=== PATIENT | male | born 1950 | race Caucasian/White ===

== ENCOUNTER 2024-04-03 00:57 | Inpatient (IN) | payer MEDICARE ==
[~2024-04-03] VITALS: Ht 182.9 cm; Wt 57.2 kg
[2024-04-03 01:53] LABS: BASOPHILS % (AUTO) 0.3 % (0.0-2.0); EOSINOPHILS # (AUTO) 0.1 K/uL (0.0-0.7); EOSINOPHILS % (AUTO) 1.6 % (0.0-6.0); HEMATOCRIT 38 % (39-51); HEMOGLOBIN 12.8 g/dL (13.5-17.5); LYMPHOCYTES # (AUTO) 1.5 K/uL (0.8-4.8); LYMPHOCYTES % (AUTO) 18.6 % (20.0-44.0); MEAN CORPUSCULAR HEMOGLOBIN 29 PG (26.0-33.0); MEAN CORPUSCULAR HGB CONC 34 g/dl (31.0-36.0); MEAN CORPUSCULAR VOLUME 86 fL (80-96); MONOCYTES # (AUTO) 0.7 K/uL (0.1-1.30); MONOCYTES % (AUTO) 9.1 % (2.0-12.0); NEUTROPHILS # (AUTO) 5.7 K/uL (1.8-8.9); NEUTROPHILS % (AUTO) 70.4 % (43.0-81.0); PLATELET COUNT (AUTO) 239 K/uL (150-450); RED BLOOD CELL COUNT(AUTO) 4.39 MIL/uL (4.5-6.0); RED CELL DISTRIBUTION WIDTH 14.9 % (11.5-15.0); WHITE BLOOD COUNT (AUTO) 8.1 K/uL (4.3-11.0)
[2024-04-03 02:05] LABS: APPEARANCE,URINE CLEAR (CLEAR); BILIRUBIN,URINE NEGATIVE (NEGATIVE); BLOOD, URINE NEGATIVE Ery/uL (NEGATIVE); COLOR,URINE YELLOW (YELLOW); KETONES,URINE NEGATIVE (NEGATIVE); LEUKOCYTE ESTERASE ,URINE NEGATIVE (NEGATIVE); NITRITE, URINE NEGATIVE (NEGATIVE); PROTEIN,URINE NEGATIVE (NEGATIVE); UGLUCOSE NEGATIVE (NEGATIVE); UROBILINOGEN,URINE 0.2 EU/dL (0.2)
[2024-04-03 02:07] LABS: CALCIUM, SERUM 8.1 mg/dL (8.5-10.1); CARBON DIOXIDE 32 mmol/L (21-32); CHLORIDE 107 mmol/L (98-107); CREATININE 1.1 mg/dL (0.6-1.3); GLUCOSE 96 mg/dL (74-106); POTASSIUM 4.3 mmol/L (3.5-5.1); SODIUM SERUM 144 mmol/L (136-145); UREA NITROGEN, BLOOD 23 mg/dL (7-18)
[2024-04-03 02:13] LABS: ALANINE AMINOTRANSFERASE 19 U/L (12-78); ALBUMIN 3.1 g/dL (3.4-5.0); ALCOHOL, BLOOD < 3 mg/dL (0-10); ALKALINE PHOSPHATASE 73 U/L (46-116); ASPARTATE AMINOTRANSFERASE 12 U/L (15-37); BILIRUBIN,DIRECT 0.2 mg/dL (0.0-0.2); BILIRUBIN,TOTAL 0.5 mg/dL (0.2-1.0); TOTAL PROTEIN, SERUM 6.6 g/dL (6.4-8.2)
[2024-04-03 02:14] LABS: ACETAMINOPHEN 0 ug/ml (10-30); SALICYLATE 0.7 mg/dL (2.8-20.0)
[2024-04-03 02:17] LABS: AMPHETAMINE, URINE NEGATIVE (NEGATIVE); BARBITURATE, URINE NEGATIVE (NEGATIVE); BENZODIAZEPINE, URINE NEGATIVE (NEGATIVE); CANNABINOID, URINE NEGATIVE (NEGATIVE); COCCAINE, URINE NEGATIVE (NEGATIVE); OPIATE, URINE NEGATIVE (NEGATIVE); PHENCYCLIDINE SCREEN,URINE NEGATIVE (NEGATIVE)
[2024-04-03] MEDS ORDERED: ACETAMINOPHEN 325 MG TABLET ONE (04:37)
[2024-04-03] MEDS: ACETAMINOPHEN 325 MG TABLET PO ONE (04:45)
[2024-04-03] MEDS ORDERED: ESCI10TA PO (04:55)
[2024-04-03] MEDS ORDERED: ONDA4TAB11 PO (04:55)
[2024-04-03] MEDS ORDERED: ASPI-1420 PO (04:55)
[2024-04-03] MEDS ORDERED: HYDR-4075 PO (04:55)
[2024-04-03] MEDS ORDERED: DONE5TAB34 PO (04:55)
[2024-04-03] MEDS ORDERED: PANT40TA49 PO (04:55)
[2024-04-03] MEDS ORDERED: LOPE2TAB25 PO (04:55)
[2024-04-03] MEDS ORDERED: PROP20TA7 PO (04:55)
[2024-04-03] MEDS ORDERED: ATOR20TA PO (04:55)
[2024-04-03] MEDS ORDERED: MAG HYDROX/AL HYDROX/SIMETH 30 ML UDC PO PRN (06:00)
[2024-04-03] MEDS ORDERED: TEMAZEPAM 7.5 MG CAPSULE PO PRN (06:00)
[2024-04-03] MEDS ORDERED: MAGNESIUM HYDROXIDE 30 ML UDC PO PRN (06:00)
[2024-04-03 06:13] VITALS: BP 123/72; TEMP 98; O2SAT 98
[2024-04-03] MEDS: BLOOD SUGAR DIAGNOSTIC 1 EACH STRIP IN ONE (06:24)
[2024-04-03 08:00] VITALS: BP 142/85; TEMP 97.4; O2SAT 98
[2024-04-03] MEDS ORDERED: ONDA-97 PO (08:09)
[2024-04-03] MEDS: ESCITALOPRAM OXALATE (10 MG) 10 MG TABLET PO SCH (14:16)
[2024-04-03] MEDS: DIVALPROEX SODIUM 125 MG TABLET.DR PO SCH (14:17)
[2024-04-03 16:00] VITALS: BP 133/73; TEMP 98; O2SAT 98
[2024-04-03] MEDS ORDERED: hydrALAZINE HCL 10 MG TABLET PO PRN (16:30)
[2024-04-03] MEDS: ONDANSETRON 4 MG TAB.RAPDIS PO SCH (17:22)
[2024-04-03] MEDS: PROPRANOLOL HCL 10 MG TABLET PO SCH (17:23)
[2024-04-03] MEDS: LOPERAMIDE HCL (2 MG CAP) 2 MG CAPSULE PO SCH (18:21)
[2024-04-03 20:00] VITALS: BP 138/81; TEMP 97.6; O2SAT 98
[2024-04-03] MEDS: ACETAMINOPHEN 325 MG TABLET PO PRN (20:24)
[2024-04-03] MEDS: ATORVASTATIN 10 MG TABLET PO SCH (21:05)
[2024-04-03] MEDS: DONEPEZIL 5 MG TABLET PO SCH (21:06)
[2024-04-04] MEDS: PANTOPRAZOLE 40 MG TABLET.DR PO SCH (07:34)
[2024-04-04 08:00] VITALS: BP 117/66; TEMP 97.6; O2SAT 97
[2024-04-04] MEDS: ASPIRIN EC 81 MG TABLET.DR PO SCH (09:17)
[2024-04-04 09:28] LABS: BASOPHILS # (AUTO) 0.1 K/uL (0.0-0.2); EOSINOPHILS # (AUTO) 0.2 K/uL (0.0-0.7); EOSINOPHILS % (AUTO) 1.7 % (0.0-6.0); HEMATOCRIT 37 % (39-51); HEMOGLOBIN 12.5 g/dL (13.5-17.5); LYMPHOCYTES % (AUTO) 11.7 % (20.0-44.0); MEAN CORPUSCULAR HEMOGLOBIN 29 PG (26.0-33.0); MEAN CORPUSCULAR HGB CONC 34 g/dl (31.0-36.0); MEAN CORPUSCULAR VOLUME 86 fL (80-96); MONOCYTES # (AUTO) 0.4 K/uL (0.1-1.30); MONOCYTES % (AUTO) 4.7 % (2.0-12.0); NEUTROPHILS # (AUTO) 7.1 K/uL (1.8-8.9); NEUTROPHILS % (AUTO) 80.9 % (43.0-81.0); PLATELET COUNT (AUTO) 235 K/uL (150-450); RED BLOOD CELL COUNT(AUTO) 4.33 MIL/uL (4.5-6.0); RED CELL DISTRIBUTION WIDTH 14.7 % (11.5-15.0); WHITE BLOOD COUNT (AUTO) 8.8 K/uL (4.3-11.0)
[2024-04-04 13:35] LABS: CHOLESTEROL 151 mg/dL (<200); HDL CHOLESTEROL 46 mg/dL (40-60); LDL 73 mg/dL (0-99); TRIGLYCERIDES 185 mg/dL (30-150)
[2024-04-04 13:36] LABS: CALCIUM, SERUM 8.3 mg/dL (8.5-10.1); CARBON DIOXIDE 27 mmol/L (21-32); CHLORIDE 107 mmol/L (98-107); CREATININE 1.2 mg/dL (0.6-1.3); GLUCOSE 223 mg/dL (74-106); POTASSIUM 4.8 mmol/L (3.5-5.1); SODIUM SERUM 144 mmol/L (136-145); UREA NITROGEN, BLOOD 19 mg/dL (7-18)
[2024-04-04 16:00] VITALS: BP 119/60; TEMP 97.9; O2SAT 97
[2024-04-04] MEDS: DIVALPROEX SODIUM 125 MG TABLET.DR PO SCH (16:39)
[2024-04-04 20:00] VITALS: BP 123/63; TEMP 98.2; O2SAT 96
[2024-04-05 08:00] VITALS: BP 124/69; TEMP 97.9; O2SAT 96
[2024-04-05] MEDS: OLANZAPINE 10 MG VIAL IM ONE (11:11)
[2024-04-05] MEDS ORDERED: DEXTROSE 50%-WATER 50 ML DISP.SYRIN IV PRN (13:30)
[2024-04-05 16:00] VITALS: BP 112/68; TEMP 98.2; O2SAT 98
[2024-04-05] MEDS: BLOOD SUGAR DIAGNOSTIC 1 EACH STRIP IN SCH (17:22)
[2024-04-05] MEDS: GLUCERNA SHAKE 237 ML CAN PO SCH (17:22)
[2024-04-05] MEDS: INSULIN REGULAR, HUMAN 100 UNIT/ML 3 ML VIAL SQ PRN (17:24)
[2024-04-05 21:05] VITALS: BP 126/64; TEMP 97.9; O2SAT 98
[2024-04-06 08:00] VITALS: BP 129/71; TEMP 98; O2SAT 98
[2024-04-06] MEDS: DIVALPROEX SODIUM 250 MG TABLET.DR PO SCH (12:03)
[2024-04-06 16:00] VITALS: BP 151/82; TEMP 98.1; O2SAT 100
[2024-04-06] MEDS ORDERED: ONDANSETRON HCL 4 MG/5 ML SOLUTION PO PRN (16:30)
[2024-04-06] MEDS ORDERED: LOPERAMIDE HCL (2 MG CAP) 2 MG CAPSULE PO PRN (16:30)
[2024-04-06 20:00] VITALS: BP 145/82; TEMP 98; O2SAT 99
[2024-04-06] MEDS: LORAZEPAM 0.5 MG TABLET PO PRN (20:24)
[2024-04-07 08:00] VITALS: BP 141/61; TEMP 97.9; O2SAT 98
[2024-04-07 16:00] VITALS: BP 123/72; TEMP 98.7; O2SAT 98
[2024-04-07 20:36] VITALS: BP 124/74; TEMP 98.2; O2SAT 98
[2024-04-08 08:00] VITALS: BP 135/82; TEMP 97.7; O2SAT 95
[2024-04-08 16:00] VITALS: BP 148/75; TEMP 97.9; O2SAT 100
[2024-04-08] MEDS: METFORMIN 500 MG TABLET PO SCH (16:23)
[2024-04-08 20:00] VITALS: BP 131/70; TEMP 98.2; O2SAT 99
[2024-04-09 08:00] VITALS: BP 126/67; TEMP 98.6; O2SAT 98
[2024-04-09 16:00] VITALS: BP 141/73; TEMP 97.7; O2SAT 99
[2024-04-09 20:00] VITALS: BP 149/85; TEMP 97.9; O2SAT 97
[2024-04-10 08:00] VITALS: BP 137/78; TEMP 98; O2SAT 98
[2024-04-10 09:43] LABS: BASOPHILS % (AUTO) 0.5 % (0.0-2.0); EOSINOPHILS # (AUTO) 0.2 K/uL (0.0-0.7); EOSINOPHILS % (AUTO) 3.5 % (0.0-6.0); HEMATOCRIT 35 % (39-51); HEMOGLOBIN 12.1 g/dL (13.5-17.5); LYMPHOCYTES # (AUTO) 1.4 K/uL (0.8-4.8); LYMPHOCYTES % (AUTO) 23.1 % (20.0-44.0); MEAN CORPUSCULAR HEMOGLOBIN 29 PG (26.0-33.0); MEAN CORPUSCULAR HGB CONC 34 g/dl (31.0-36.0); MEAN CORPUSCULAR VOLUME 86 fL (80-96); MONOCYTES # (AUTO) 0.6 K/uL (0.1-1.30); MONOCYTES % (AUTO) 9.9 % (2.0-12.0); NEUTROPHILS # (AUTO) 3.9 K/uL (1.8-8.9); PLATELET COUNT (AUTO) 203 K/uL (150-450); RED CELL DISTRIBUTION WIDTH 14.3 % (11.5-15.0); WHITE BLOOD COUNT (AUTO) 6.1 K/uL (4.3-11.0)
[2024-04-10 12:17] LABS: ALBUMIN 2.7 g/dL (3.4-5.0); BILIRUBIN,TOTAL 0.6 mg/dL (0.2-1.0); CALCIUM, SERUM 8.7 mg/dL (8.5-10.1); POTASSIUM 4.8 mmol/L (3.5-5.1); TOTAL PROTEIN, SERUM 6.2 g/dL (6.4-8.2)
[2024-04-10 16:00] VITALS: BP 141/69; TEMP 98.6; O2SAT 99
[2024-04-10 20:00] VITALS: BP 140/72; TEMP 98.1; O2SAT 95
[2024-04-10 21:04] VITALS: BP 140/72; TEMP 98.1; O2SAT 98
[2024-04-11 08:00] VITALS: BP 150/72; TEMP 97.9; O2SAT 99
[2024-04-11 16:00] VITALS: BP 131/75; TEMP 97.7; O2SAT 95
[2024-04-11 20:27] VITALS: BP 139/77; TEMP 97.9; O2SAT 97
[2024-04-12 08:00] VITALS: BP 153/81; TEMP 97.7; O2SAT 97
[2024-04-12 08:20] VITALS: BP 153/81
== END 2024-04-12 13:35 | DRG 885 ==
LOC: ER 01:08 → GPS 04:51
PROVIDERS: ADMIT Psychiatry & Neurology Psychosomatic Medicine; ATTEND Student in an Organized Health Care Education/Training Program
DX: F29 Unspecified psychosis not due to a substance or known physiological condition (principal); F03.93 Unspecified dementia, unspecified severity, with mood disturbance; E44.1 Mild protein-calorie malnutrition; F03.92 Unspecified dementia, unspecified severity, with psychotic disturbance; Z68.1 Body mass index [BMI] 19.9 or less, adult; E86.0 Dehydration; Z73.6 Limitation of activities due to disability; D64.9 Anemia, unspecified; F32.9 Major depressive disorder, single episode, unspecified; E88.09 Other disorders of plasma-protein metabolism, not elsewhere classified; E11.9 Type 2 diabetes mellitus without complications; M17.11 Unilateral primary osteoarthritis, right knee; Z20.822 Contact with and (suspected) exposure to COVID-19
CPT/HCPCS: 36415; 73564-TC; 80048-TC; 80053-TC; 80061-TC; 80076-TC; 80164-TC; 82962-TC; 84443-TC; 85025-TC; 87081-TC; 97116-TC; 97530-TC; G0480; J1815; J3490; Q0162

== ENCOUNTER 2024-07-28 11:13 | Inpatient (IN) | payer MEDICARE, OTHER ==
[~2024-07-28] VITALS: Ht 182.9 cm; Wt 72.6 kg
[~2024-07-28 11:13] MED LIST: ASPI-1420 PO; ATOR20TA PO; DONE5TAB34 PO; ESCI10TA PO; HYDR-4075 PO; LOPE2TAB25 PO; ONDA-97 PO; PANT40TA49 PO; PROP20TA7 PO
[2024-07-28 11:45] LABS: BASOPHILS % (AUTO) 0.5 % (0.0-2.0); EOSINOPHILS # (AUTO) 0.2 K/uL (0.0-0.7); EOSINOPHILS % (AUTO) 3.1 % (0.0-6.0); HEMATOCRIT 36 % (39-51); LYMPHOCYTES # (AUTO) 1.6 K/uL (0.8-4.8); LYMPHOCYTES % (AUTO) 30.2 % (20.0-44.0); MEAN CORPUSCULAR HEMOGLOBIN 31 PG (26.0-33.0); MEAN CORPUSCULAR HGB CONC 34 g/dl (31.0-36.0); MEAN CORPUSCULAR VOLUME 91 fL (80-96); MONOCYTES # (AUTO) 0.5 K/uL (0.1-1.30); MONOCYTES % (AUTO) 8.7 % (2.0-12.0); NEUTROPHILS # (AUTO) 3.1 K/uL (1.8-8.9); NEUTROPHILS % (AUTO) 57.5 % (43.0-81.0); PLATELET COUNT (AUTO) 217 K/uL (150-450); RED BLOOD CELL COUNT(AUTO) 3.93 MIL/uL (4.5-6.0); WHITE BLOOD COUNT (AUTO) 5.4 K/uL (4.3-11.0)
[2024-07-28 11:53] LABS: CALCIUM, SERUM 9.1 mg/dL (8.5-10.1); CARBON DIOXIDE 34 mmol/L (21-32); CHLORIDE 108 mmol/L (98-107); GLUCOSE 98 mg/dL (74-106); SODIUM SERUM 144 mmol/L (136-145); UREA NITROGEN, BLOOD 18 mg/dL (7-18)
[2024-07-28 12:00] LABS: ACETAMINOPHEN < 10 ug/ml (10-30); ALANINE AMINOTRANSFERASE 10 U/L (12-78); ALBUMIN 3.3 g/dL (3.4-5.0); ALKALINE PHOSPHATASE 44 U/L (46-116); ASPARTATE AMINOTRANSFERASE 8 U/L (15-37); BILIRUBIN,DIRECT 0.1 mg/dL (0.0-0.2); BILIRUBIN,TOTAL 0.6 mg/dL (0.2-1.0); TOTAL PROTEIN, SERUM 6.3 g/dL (6.4-8.2)
[2024-07-28 12:03] LABS: ALCOHOL, BLOOD < 3 mg/dL (0-10); SALICYLATE 0.6 mg/dL (2.8-20.0)
[2024-07-28] MEDS ORDERED: TRAM50TA2 PO (12:19)
[2024-07-28] MEDS ORDERED: DIVA250T4 PO (12:19)
[2024-07-28] MEDS ORDERED: METF-440 PO (12:19)
[2024-07-28] MEDS ORDERED: ESCI5TAB PO (12:19)
[2024-07-28] MEDS ORDERED: POLY17PO4 PO (12:19)
[2024-07-28] MEDS ORDERED: DICL100G34 TP (12:19)
[2024-07-28 12:20] LABS: APPEARANCE,URINE CLEAR (CLEAR); BILIRUBIN,URINE NEGATIVE (NEGATIVE); BLOOD, URINE NEGATIVE Ery/uL (NEGATIVE); COLOR,URINE YELLOW (YELLOW); KETONES,URINE NEGATIVE (NEGATIVE); LEUKOCYTE ESTERASE ,URINE NEGATIVE (NEGATIVE); NITRITE, URINE NEGATIVE (NEGATIVE); PROTEIN,URINE NEGATIVE (NEGATIVE); UGLUCOSE NEGATIVE (NEGATIVE); UROBILINOGEN,URINE 0.2 EU/dL (0.2)
[2024-07-28 12:49] LABS: AMPHETAMINE, URINE NEGATIVE (NEGATIVE); BARBITURATE, URINE NEGATIVE (NEGATIVE); BENZODIAZEPINE, URINE NEGATIVE (NEGATIVE); CANNABINOID, URINE NEGATIVE (NEGATIVE); COCCAINE, URINE NEGATIVE (NEGATIVE); OPIATE, URINE NEGATIVE (NEGATIVE); PHENCYCLIDINE SCREEN,URINE NEGATIVE (NEGATIVE)
[2024-07-28] MEDS ORDERED: MAG HYDROX/AL HYDROX/SIMETH 30 ML UDC PO PRN (15:00)
[2024-07-28] MEDS ORDERED: ZOLPIDEM TARTRATE 5 MG TABLET PO PRN (15:00)
[2024-07-28] MEDS ORDERED: MAGNESIUM HYDROXIDE 30 ML UDC PO PRN (15:00)
[2024-07-28] MEDS: BLOOD SUGAR DIAGNOSTIC 1 EACH STRIP IN ONE (15:52)
[2024-07-28 16:00] VITALS: BP 136/57; TEMP 98; O2SAT 100
[2024-07-28 20:00] VITALS: BP 138/69; TEMP 97.5; O2SAT 100
[2024-07-29 08:31] LABS: ALANINE AMINOTRANSFERASE 13 U/L (12-78); ALBUMIN 3.4 g/dL (3.4-5.0); ALKALINE PHOSPHATASE 38 U/L (46-116); ASPARTATE AMINOTRANSFERASE 12 U/L (15-37); BILIRUBIN,TOTAL 0.5 mg/dL (0.2-1.0); CALCIUM, SERUM 8.7 mg/dL (8.5-10.1); CARBON DIOXIDE 33 mmol/L (21-32); CHLORIDE 111 mmol/L (98-107); GLUCOSE 89 mg/dL (74-106); POTASSIUM 4.6 mmol/L (3.5-5.1); SODIUM SERUM 145 mmol/L (136-145); TOTAL PROTEIN, SERUM 6.2 g/dL (6.4-8.2); UREA NITROGEN, BLOOD 16 mg/dL (7-18)
[2024-07-29 08:36] VITALS: BP 100/67; TEMP 97.8; O2SAT 98
[2024-07-29] MEDS ORDERED: DIVALPROEX SODIUM 250 MG TABLET.DR PO SCH (13:00)
[2024-07-29] MEDS: DIVALPROEX SODIUM 250 MG TABLET.DR PO SCH (13:02)
[2024-07-29 16:28] VITALS: BP 120/66; TEMP 97.8; O2SAT 98
[2024-07-29] MEDS: METFORMIN 500 MG TABLET PO SCH (16:44)
[2024-07-29] MEDS: PROPRANOLOL HCL 10 MG TABLET PO SCH (16:45)
[2024-07-29] MEDS: DICLOFENAC TOPICAL 100 GM TUBE TP SCH (17:12)
[2024-07-29 20:00] VITALS: BP 109/68; TEMP 97.5; O2SAT 99
[2024-07-29] MEDS: ATORVASTATIN 10 MG TABLET PO SCH (21:53)
[2024-07-29] MEDS: DONEPEZIL 5 MG TABLET PO SCH (21:53)
[2024-07-30 01:35] LABS: CHOLESTEROL 225 mg/dL (<200); HDL CHOLESTEROL 57 mg/dL (40-60); TRIGLYCERIDES 130 mg/dL (30-150)
[2024-07-30 01:36] LABS: LDL 136 mg/dL (0-99)
[2024-07-30 08:00] VITALS: BP 123/76; TEMP 98.2; O2SAT 97
[2024-07-30] MEDS: PANTOPRAZOLE 40 MG TABLET.DR PO SCH (08:40)
[2024-07-30] MEDS: ASPIRIN EC 81 MG TABLET.DR PO SCH (08:42)
[2024-07-30 16:00] VITALS: BP 114/70; TEMP 98.4; O2SAT 98
[2024-07-30] MEDS: LORAZEPAM 1 MG TABLET PO PRN (18:36)
[2024-07-30 20:21] VITALS: BP 99/52; TEMP 98; O2SAT 98
[2024-07-31 08:00] VITALS: BP 128/71; TEMP 98; O2SAT 94
[2024-07-31 16:00] VITALS: BP 96/55; TEMP 98.9; O2SAT 97
[2024-07-31 20:56] VITALS: BP 105/74; TEMP 98.4; O2SAT 97
[2024-08-01 08:00] VITALS: BP 127/61; TEMP 97.6; O2SAT 96
[2024-08-01 16:00] VITALS: BP 118/66; TEMP 97.6; O2SAT 98
[2024-08-01 20:26] VITALS: BP 122/66; TEMP 98.2; O2SAT 97
[2024-08-02 08:00] VITALS: BP 121/71; TEMP 98.6; O2SAT 99
[2024-08-02 16:00] VITALS: BP 104/63; TEMP 98.7; O2SAT 97
[2024-08-02] MEDS: ACETAMINOPHEN 325 MG TABLET PO PRN (19:51)
[2024-08-02 20:46] VITALS: BP 103/65; TEMP 98.6; O2SAT 98
[2024-08-03 08:00] VITALS: BP 115/57; TEMP 97.8; O2SAT 96
[2024-08-03 16:00] VITALS: BP 118/69; TEMP 98.1; O2SAT 99
[2024-08-03 20:19] VITALS: BP 117/61; TEMP 98.4; O2SAT 98
[2024-08-04 08:00] VITALS: BP 122/73; TEMP 97; O2SAT 99
[2024-08-04] MEDS: LORAZEPAM 0.5 MG TABLET PO PRN (14:59)
[2024-08-04 16:00] VITALS: BP 141/77; TEMP 97.8; O2SAT 98
[2024-08-04 20:00] VITALS: BP 124/74; TEMP 97.9; O2SAT 98
[2024-08-04] MEDS: DIVALPROEX SODIUM 500 MG TABLET.DR PO SCH (21:26)
[2024-08-05 08:00] VITALS: BP 121/67; TEMP 98; O2SAT 98
[2024-08-05 16:00] VITALS: BP 118/67; TEMP 98.1; O2SAT 96
[2024-08-05 20:00] VITALS: BP 108/62; TEMP 98.5; O2SAT 98
[2024-08-06 08:00] VITALS: BP 123/65; TEMP 98.1; O2SAT 99
[2024-08-06 16:00] VITALS: BP 120/62; TEMP 97.9; O2SAT 99
[2024-08-06 20:00] VITALS: BP 113/66; TEMP 97.5; O2SAT 97
[2024-08-07 08:00] VITALS: BP 112/90; TEMP 98.1; O2SAT 100
[2024-08-07 16:00] VITALS: BP 115/59; TEMP 97.5; O2SAT 94; O2SAT 99
[2024-08-07 20:20] VITALS: BP 130/71; TEMP 98.2; O2SAT 97
[2024-08-08 08:00] VITALS: BP 142/79; TEMP 97.8; O2SAT 96
[2024-08-08 16:00] VITALS: BP 137/84; TEMP 98; O2SAT 100
[2024-08-08 20:53] VITALS: BP 135/75; TEMP 98; O2SAT 98
[2024-08-09 13:18] LABS: BASOPHILS % (AUTO) 0.4 % (0.0-2.0); EOSINOPHILS # (AUTO) 0.2 K/uL (0.0-0.7); EOSINOPHILS % (AUTO) 2.3 % (0.0-6.0); HEMATOCRIT 38 % (39-51); HEMOGLOBIN 12.8 g/dL (13.5-17.5); LYMPHOCYTES # (AUTO) 1.6 K/uL (0.8-4.8); MEAN CORPUSCULAR HEMOGLOBIN 31 PG (26.0-33.0); MEAN CORPUSCULAR HGB CONC 34 g/dl (31.0-36.0); MEAN CORPUSCULAR VOLUME 92 fL (80-96); MONOCYTES # (AUTO) 0.8 K/uL (0.1-1.30); MONOCYTES % (AUTO) 10.4 % (2.0-12.0); NEUTROPHILS # (AUTO) 4.9 K/uL (1.8-8.9); NEUTROPHILS % (AUTO) 64.9 % (43.0-81.0); PLATELET COUNT (AUTO) 258 K/uL (150-450); RED BLOOD CELL COUNT(AUTO) 4.17 MIL/uL (4.5-6.0); RED CELL DISTRIBUTION WIDTH 15.4 % (11.5-15.0); WHITE BLOOD COUNT (AUTO) 7.5 K/uL (4.3-11.0)
[2024-08-09 13:31] LABS: ALANINE AMINOTRANSFERASE 8 U/L (12-78); ALBUMIN 3.6 g/dL (3.4-5.0); ALKALINE PHOSPHATASE 64 U/L (46-116); ASPARTATE AMINOTRANSFERASE 9 U/L (15-37); BILIRUBIN,TOTAL 0.5 mg/dL (0.2-1.0); CALCIUM, SERUM 8.9 mg/dL (8.5-10.1); CARBON DIOXIDE 34 mmol/L (21-32); CHLORIDE 106 mmol/L (98-107); GLUCOSE 136 mg/dL (74-106); POTASSIUM 4.9 mmol/L (3.5-5.1); SODIUM SERUM 142 mmol/L (136-145); TOTAL PROTEIN, SERUM 7.7 g/dL (6.4-8.2); UREA NITROGEN, BLOOD 18 mg/dL (7-18)
[2024-08-09] MEDS: DIVALPROEX SODIUM 500 MG TABLET.DR PO SCH ×2 (16:54→21:31)
[2024-08-09 20:00] VITALS: BP 121/61; TEMP 98; O2SAT 100
[2024-08-10 08:00] VITALS: BP 127/66; TEMP 98.1; O2SAT 97
[2024-08-10 16:16] VITALS: BP 105/62; TEMP 97.8; O2SAT 96
[2024-08-10 20:00] VITALS: BP 134/56; TEMP 98; O2SAT 97
[2024-08-11 08:00] VITALS: BP 105/70; TEMP 98.1; O2SAT 100
== END 2024-08-11 13:30 | DRG 885 ==
LOC: ER 11:18 → GPS 14:00 → MEDOV2 14:16 → GPS 14:28
PROVIDERS: ADMIT Psychiatry & Neurology Psychosomatic Medicine; ATTEND Student in an Organized Health Care Education/Training Program
DX: F29 Unspecified psychosis not due to a substance or known physiological condition (principal); E44.1 Mild protein-calorie malnutrition; F03.93 Unspecified dementia, unspecified severity, with mood disturbance; F03.92 Unspecified dementia, unspecified severity, with psychotic disturbance; Z68.1 Body mass index [BMI] 19.9 or less, adult; I10 Essential (primary) hypertension; E78.5 Hyperlipidemia, unspecified; E11.9 Type 2 diabetes mellitus without complications; D64.9 Anemia, unspecified; E88.09 Other disorders of plasma-protein metabolism, not elsewhere classified; F32.9 Major depressive disorder, single episode, unspecified; K21.9 Gastro-esophageal reflux disease without esophagitis; Z20.822 Contact with and (suspected) exposure to COVID-19; Z73.6 Limitation of activities due to disability; M19.90 Unspecified osteoarthritis, unspecified site; F39 Unspecified mood [affective] disorder; M17.11 Unilateral primary osteoarthritis, right knee; Z68.21 Body mass index [BMI] 21.0-21.9, adult
CPT/HCPCS: 36415; 80048-TC; 80053-TC; 80061-TC; 80076-TC; 80164-TC; 82962-TC; 84443-TC; 85025-TC; 87081-TC; 98960; G0480